=== PATIENT | female | born 1975 | race Caucasian/White ===

== ENCOUNTER 2022-10-06 07:05 | Day surgery (SDC) | payer OTHER ==
[2022-10-06] VITALS (256 sets, daily range): BP systolic 86–149; BP diastolic 46–97
[~2022-10-06] VITALS: Ht 165.1 cm; Wt 71.0 kg
--- NOTE | 2022-10-06 07:05 | NUR ---
PT ARRIVES AMBULATORY IN NO DISGTRESS WITH STEADY GAIT ACCOMPANIED BY BOYFRIEND. DISCUSSED POC AND ORIENTED TO ROOM. ALL BELONGINGS SENT HOME WITH S/O, ALL QUESTIONS ANSWERED.
--- NOTE | 2022-10-06 07:40 | NUR ---
DR SMITH CALLED WITH VS AND EXCHANGE OF PT INFORMATION. EW ORDERS RECEIVED.PT MEDICATED ORDERED. INITTAITED IV,FLUIDS, LABS AND EKG PERFORMED.
[2022-10-06 08:21] LABS: BASO% 0.4 % (0-3); EOS% 2.3 % (0-8); HEMATOCRIT 38.2 % (37.0-47.0); HEMOGLOBIN 12.1 g/dl (12.0-16.0); IMMATURE GRANULOCYTES 0.3 % (0.0-5.0); LYMPH% 26.7 % (15-41); MEAN CORPUSCULAR HGB 26.3 pG CALC (26.0-32.0); MEAN CORPUSCULAR HGB CONC 31.7 g/dL CAL (32.0-36.0); MONO% 10.7 % (2-13); NEUT# 4.46 thou/uL (2.00-7.15); NEUT% 59.6 % (42-76); RED BLOOD COUNT 4.6 mill/uL (4.20-5.60); RED CELL DISTRI WIDTH 12.6 % (11.5-15.5)
[2022-10-06 08:53] LABS: ALBUMIN 4.1 g/dL (3.2-5.0); ALKALINE PHOSPHATASE 74 u/l (38-126); ANION GAP 9 (6-22 (CALC)); BILIRUBIN, TOTAL 0.4 mg/dL (0.02-1.3); BUN 13 mg/dL (7-17); BUN/CREATININE RATIO 17 (12-20 (CALC)); CARBON DIOXIDE 34 mmol/l (22-30); CHLORIDE 101 mmol/l (95-108); CREATININE 0.8 mg/dL (0.5-1.0); GFR FOR AFR.AMER. > 60 ML/MIN (>=60 (CALC)); GFR OTHER RACES > 60 ML/MIN (>=60 (CALC)); POTASSIUM 3.5 mmol/l (3.5-5.1); SGOT/AST 25 u/l (14-36); SODIUM 140 mmol/l (137-146); TOTAL PROTEIN 6.7 g/dL (6.3-8.2)
--- NOTE | 2022-10-06 09:00 | NUR ---
PT RESTFUL,VSS. PT UP TO BATHROOM. PT STATES LARGE VOID. ASSISTED BACK TO BED, ROZINA BORREGO APPLIED FOR COMFORT. REASSESSED BY MONITORS. DR SMITH AT BEDSIDE TO SPEAK TO PATIENT
--- NOTE | 2022-10-06 10:02 | NUR ---
PT AMBULATORY TO RR STATES VOIDED X1. RETURNED TO BED. PT PLEASANT AND COOPERATIVE, RETURNED TO SLEEP QUICKLY.
--- NOTE | 2022-10-06 11:10 | NUR ---
PT AMB TO RR AND VOIDED X1. UPDATED ON POC AND WAIT TIME. PT AGREEABLE. VSS. IV FLUIDS CONTINUE. IV SITE RT AC INTACT AND WITHOUT REDNESS.
--- NOTE | 2022-10-06 11:28 | NUR ---
Induction Note Time out performed at 1128. Patient placed on monitors, Dianne hugger, bilateral wrist restraints applied for ET tube protection. Versed 5mg given IV push at 1128 Tourniquet applied to RT arm Lidocaine 100mg given [id number] IV push followed by Rocoronium 10mg at 1129 IV push and held for 90 seconds. Propofol bolus of 150mg given at 1130 IV push. Succinylcholine 80mg given IV push at 1131. Smooth intubation with 7.5 ETT. Positive CO2. Positive Auscultation for air exchange. Patient placed on ventilator for spontaneous ventilation. Placed on Propofol IV drip at 1132. OG inserted. Positive air on auscultation. Positive gastric content. Stomach washed at this time. 1145Naltrexone 50mg given via OG tube with Clonidine 0.1 mg given via OG Tube. OG clamped for 45 minutes. Will monitor patient for symptoms of withdrawal and adjust propfol accordingly.
--- NOTE | 2022-10-06 12:25 | NUR ---
OG open note OG open at this time. Gastric content draining into drainage bag. OG to drain for 45 minutes. Propofol will be titrated down based on patient.
--- NOTE | 2022-10-06 13:15 | NUR ---
OG close note Stomach washed at this time. Naltrexone 50 mg with Clonidine 0.1 mg via OG tube. OG will be clamped for 45 minutes.
--- NOTE | 2022-10-06 14:45 | NUR ---
OG close note Stomach washed at this time. Naltrexone 50 mg with Clonidine 0.1 mg via OG tube. OG will be clamped for 45 minutes.
[2022-10-06] MEDS ORDERED: CLONIDINE0.1 MG PO (15:50)
[2022-10-06] MEDS ORDERED: NALTREXONE50 MG PO (15:50)
[2022-10-06] MEDS ORDERED: KLONOPIN2 MG PO (15:51)
--- NOTE | 2022-10-06 16:20 | NUR ---
OG close note Stomach washed at this time. Naltrexone 25 mg with Clonidine 0.2 mg via OG tube. OG will be clamped for 45 minutes.
--- NOTE | 2022-10-06 19:10 | NUR ---
Extubation note Closing medications given Benadryl 50mg IV push, Decadron 10mg IV push,Magnesium 4 grams IV, Zofran 8mg IV push, Octreotide 100mcg SC. Stomach washed out prior to extubation. Suctioned gastric content. OG removed. Patient extubated. Propofol Discontinued. Wrist restraints removed. Dianne hugger Removed. See ANR Moderate sedate recovery record for further notes and assessment.
--- NOTE | 2022-10-06 20:40 | NUR ---
Patient to room 288 in no acute distress. Transfer of care to Medical/Surgical ANR TOMMY Olguin at bedside. 2L NC placed per orders, VSS. Patient resting comfortably, no adventitious breath sounds appreciated. Bed alarm set. See chart/EMAR for procedural details and assessments. Handoff of care at the time of this note.
--- NOTE | 2022-10-06 20:45 | NUR ---
ARRIVED IN THE ROOM VERY RESTLESS, TRING TO GET OUT OF THE BED. UNABLE TO RE-ORIENT. BED ALRM ON . CALL LIGHT IN REACH.
--- NOTE | 2022-10-06 21:23 | NUR ---
PATIENT VERY AGITATED .CALL PLACED TO DR. SMITH . ORDER TO GIVE HER HALDOL 5 MG I.V NOW THEN EVERY 15 MIN. TILL IT REACH THE FULL EFFECT TO THE PATIENT.
--- NOTE | 2022-10-06 22:19 | NUR ---
PATIENT REMAIN VERY AGITATED. INCONTINENT OF URINE.DOESNT FOLLOW ANY COMMAND .
--- NOTE | 2022-10-06 23:32 | NUR ---
PATIENT RMEAIN VERY RESTLESS AND NOT FOLLOW COMMAND. RE-ORIENTED TO TIME, PLACE AND EVENTS.
--- NOTE | 2022-10-07 00:27 | NUR ---
REMAIN VERY RESTLESS, AGITATED. AVTIVAN 2 MG I.V GIVEN PER ORDERED.
[2022-10-07 03:01] VITALS: BP 103/50
--- NOTE | 2022-10-07 04:48 | NUR ---
PATIENT VOMITED MODERATE AMOUNT OF GASTRIC CONTENT.
--- NOTE | 2022-10-07 06:16 | NUR ---
PATIENT RESTLESS ALL NIGHT DESPITE ALL ANTI- ANXIETY MEDICATION AND RE-ORIENTATION. CONT. TO MONITOR.
[2022-10-07 07:35] VITALS: BP 116/56
--- NOTE | 2022-10-07 08:20 | NUR ---
PT RESTING IN LOW FOWLERS POSTION .PT ALERT PT SPEECH UNCLEAR. ASSESSENT AND VS COMPLETED. PT RESPIRATIONS LABORED WHEN ATTEMPTING TO GET OUT OF BED. PT PLACED BACK INTO BED . PT TROUBLE TAKING MEDICATIONS PT ENCOURAGED AND SUCCESSFUL . PT ABLE TO SWALLOW AND DRINK WATER . MEDICATED PER EMAR FOR RESTLESSNESS. LAB SUCCESSFUL FOR LAB DRAW. PT RESTING IN LOW FOWLERS POSITION. IV SITE NOTED TO LEFT WRIST. PT DENIES ADDITIONAL NEEDS AT THE TIME SAFETY PRECAUTIONS IN PLACE.
[2022-10-07 08:34] LABS: HEMATOCRIT 34.9 % (37.0-47.0); HEMOGLOBIN 11.8 g/dl (12.0-16.0); IMMATURE GRANULOCYTES 0.2 % (0.0-5.0); LYMPH% 3.4 % (15-41); MEAN CELL VOLUME 80.6 fL CALC (80.0-100.0); MEAN CORPUSCULAR HGB 27.3 pG CALC (26.0-32.0); MEAN CORPUSCULAR HGB CONC 33.8 g/dL CAL (32.0-36.0); NEUT# 26.05 thou/uL (2.00-7.15); NEUT% 92.4 % (42-76); RED BLOOD COUNT 4.33 mill/uL (4.20-5.60); RED CELL DISTRI WIDTH 12.6 % (11.5-15.5)
[2022-10-07 08:45] LABS: ALBUMIN 3.7 g/dL (3.2-5.0); ALKALINE PHOSPHATASE 84 u/l (38-126); BUN 12 mg/dL (7-17); BUN/CREATININE RATIO 19 (12-20 (CALC)); CHLORIDE 111 mmol/l (95-108); CREATININE 0.6 mg/dL (0.5-1.0); GFR FOR AFR.AMER. > 60 ML/MIN (>=60 (CALC)); GFR OTHER RACES > 60 ML/MIN (>=60 (CALC)); MAGNESIUM 2.3 mg/dL (1.6-2.3); POTASSIUM 3.9 mmol/l (3.5-5.1); SGOT/AST 31 u/l (14-36); SODIUM 140 mmol/l (137-146); TOTAL PROTEIN 6.1 g/dL (6.3-8.2)
[2022-10-07 08:58] LABS: ANION GAP 12 (6-22 (CALC)); BILIRUBIN, TOTAL 0.7 mg/dL (0.02-1.3); CARBON DIOXIDE 21 mmol/l (22-30)
--- NOTE | 2022-10-07 10:58 | NUR ---
MD AT BEDSIDE POSSIBLE EXTEND DAY FOR PT NOT ABLE TO COMMUNICATE WITH PROVIDER MD STATED STOP BENZODIAPINES, PT SHOULD BE MORE AWAKE AND ALERT .
--- NOTE | 2022-10-07 12:06 | NUR ---
PT ABLE TO WALK TO BATHROOM WITH A STANDY ASSIST .PT VOIDED IN BATHROOM.
--- NOTE | 2022-10-07 17:16 | NUR ---
PT RESTING IN LOW FOWLERS POSITION. PT NEW IV IN RFA 20G FLUSHED WELL. PT DENIES ADDITIONAL NEEDS ENCOURAGED PT TO SHOWER AND EAT . PT DENIES AND LAYS BACK IN BED. SPEECH MORE CLEAR UNDERSTANDABLE.ALL SAFETY PRECAUTIONS IN PLACE.
[2022-10-07 18:42] VITALS: BP 87/42
[2022-10-07 19:31] VITALS: BP 104/59
--- NOTE | 2022-10-07 20:00 | NUR ---
RECEIVED REPO RT FROM NURSE CHAPMAN, PATIENT RESTING IN BED, PATIENT BREATHING UNLABORED, PATIENT HOOKED ON LR @ 100CC/HR PER ORDER, NEW IV SITE INSERTED ON RFA G22 PATENT FLUSHES WELL, LUNG SOUNDS CLEAR, ACTIVE BOWEL SOUNDS, PATIENT SLEEPY, BED ALRM INPLACE.
[2022-10-07 22:20] VITALS: BP 106/49
--- NOTE | 2022-10-08 | NUR ---
PATINET RESTING IN BED, EYES CLOSED, BREATHIMG UNLABORED NOT IN DISTRESS, BED ALARM IN PLACE.
[2022-10-08 02:30] VITALS: BP 99/57
[2022-10-08 03:00] VITALS: BP 99/57
--- NOTE | 2022-10-08 04:57 | NUR ---
PATIENT C/O BACK PAIN PS 7/10 PRN TORADOL GIVEN, CURRENTLY SLEEPING, ROZINA HUGGER AND BED ALARM INPLACE.
[2022-10-08 05:42] LABS: BASO% 0.1 % (0-3); HEMATOCRIT 35.2 % (37.0-47.0); HEMOGLOBIN 11.6 g/dl (12.0-16.0); IMMATURE GRANULOCYTES 0.1 % (0.0-5.0); LYMPH% 7.5 % (15-41); MEAN CELL VOLUME 82.2 fL CALC (80.0-100.0); MEAN CORPUSCULAR HGB 27.1 pG CALC (26.0-32.0); MONO% 3.5 % (2-13); NEUT# 19.13 thou/uL (2.00-7.15); NEUT% 88.8 % (42-76); RED BLOOD COUNT 4.28 mill/uL (4.20-5.60); RED CELL DISTRI WIDTH 13.1 % (11.5-15.5)
[2022-10-08 06:09] LABS: ALBUMIN 3.5 g/dL (3.2-5.0); ALKALINE PHOSPHATASE 77 u/l (38-126); ANION GAP 13 (6-22 (CALC)); BILIRUBIN, TOTAL 0.5 mg/dL (0.02-1.3); BUN 17 mg/dL (7-17); BUN/CREATININE RATIO 22 (12-20 (CALC)); CARBON DIOXIDE 21 mmol/l (22-30); CHLORIDE 111 mmol/l (95-108); CREATININE 0.8 mg/dL (0.5-1.0); GFR FOR AFR.AMER. > 60 ML/MIN (>=60 (CALC)); GFR OTHER RACES > 60 ML/MIN (>=60 (CALC)); POTASSIUM 3.7 mmol/l (3.5-5.1); SGOT/AST 25 u/l (14-36); SODIUM 142 mmol/l (137-146); TOTAL PROTEIN 5.9 g/dL (6.3-8.2)
[2022-10-08 06:15] VITALS: BP 113/66
[2022-10-08 07:15] VITALS: BP 113/66
--- NOTE | 2022-10-08 07:45 | NUR ---
REPORT RECEIVED FROM NIGHT RN. SHIFT ASSESSMENT COMPLETED AT THIS TIME. IV PATENT. CALL LIGHT IN REACH. BED ALAR IN PLACE FOR PATIENT SAFETY. WILL CONTINUE TO MONITOR.
--- NOTE | 2022-10-08 08:15 | NUR ---
PATIENT SITTING UP EATING BREAKFAST
--- NOTE | 2022-10-08 08:40 | NUR ---
PATIENT ASSISTED TO BATHROOM FOR BM THEN ASSISTED TO SHOWER.
--- NOTE | 2022-10-08 11:10 | NUR ---
Discharge instructions given. Patient verbalizes understanding of same. Discharged in stable condition via Wheelchair to Home with family. All belongings sent with pt.
--- NOTE | 2022-10-08 11:15 | NUR ---
REPORT RECEIVED FROM Santiago JACK RN AT BEDSIDE. CARE OF PT ASSUMED AT THIS TIME. PT RESTING IN BED, APPEARS COMFORTABLE AND IN NO DISTRESS. DENIES NEEDS AT THIS TIME. CALL RAVI WITHIN REACH, AGREES TO CALL PRN.
== END 2022-10-08 11:10 | disposition home or self-care (01) | DRG 897 ==
LOC: MS2 07:05 → ANR 07:05 → MS2 18:37 → ANR 10-08 11:10 → MS2 10-08 11:10
PROVIDERS: ATTEND Anesthesiology Critical Care Medicine
DX: F11.20 Opioid dependence, uncomplicated (principal)
CPT/HCPCS: J0131; J2060; J2354; J3475; S0164